=== PATIENT | female | born 1945 | race African-American/Black ===

== ENCOUNTER 2021-09-28 06:20 | Emergency (ER) | payer MEDICARE ==
[~2021-09-28] VITALS: Ht 165.1 cm; Wt 51.8 kg
[~2021-09-28 06:20] MED LIST: CARI350T26 PO; HYDR-308 PO; METO50 PO; SPIR-37 PO; TRAM50TA4 PO; VITAMIN D PO
[2021-09-28] MEDS ORDERED: IPRATROPIUM BROMIDE 0.5 MG/2.5 ML NEB SOLUTION NEB ONE (06:45)
[2021-09-28] MEDS ORDERED: ALBUTEROL SULFATE 2.5 MG/0.5 ML NEB SOLUTION NEB ONE (06:45)
[2021-09-28] MEDS ORDERED: ACETAMINOPHEN 325 MG TABLET PO ONE (06:45)
[2021-09-28 07:02] LABS: BASOPHILS % (AUTO) 0.7 % (0.0-2.0); EOSINOPHILS % (AUTO) 2.1 % (1.0-6.0); HEMATOCRIT 39.7 % (36-46); HEMOGLOBIN 13.6 g/dL (12.0-16.0); LYMPHOCYTES # (AUTO) 3.8 K/uL (1.0-4.8); LYMPHOCYTES % (AUTO) 31.3 % (22.0-44.0); MEAN CORPUSCULAR HEMOGLOBIN 32.1 pg (26.0-34.0); MEAN CORPUSCULAR HGB CONC 34.3 G/dL (31.0-37.0); MEAN CORPUSCULAR VOLUME 93 fL (80-100); MONOCYTES # (AUTO) 1.1 K/uL (0.1-1.0); MONOCYTES % (AUTO) 8.8 % (2.0-9.0); NEUTROPHILS % (AUTO) 57.1 % (40.0-70.0); PLATELET COUNT (AUTO) 382 K/uL (150-450); RED BLOOD CELL COUNT(AUTO) 4.26 MIL/uL (4.00-5.20); RED CELL DISTRIBUTION WIDTH 14.1 % (11.5-14.5)
[2021-09-28 07:13] LABS: ANION GAP 8 mmol/L (8-16); CALCIUM, TOTAL 9.4 mg/dL (8.8-10.5); CARBON DIOXIDE 26 mmol/L (22-29); CHLORIDE 100 mmol/L (98-107); CREATININE 0.98 mg/dL (0.60-1.30); GLOMERULAR FILTR. RATE CALC > 60 mL/min (>60); GLUCOSE,RANDOM 106 mg/dL (70-110); POTASSIUM 3.7 mmol/L (3.5-5.1); SODIUM SERUM 134 mmol/L (136-145); UREA NITROGEN, BLOOD 12 mg/dL (7-18)
[2021-09-28 07:59] LABS: COVID AG,FIA SOURCE NASOPHARYNGEAL
[2021-09-28 08:15] VITALS: BP 136/88
[2021-09-28] MEDS ORDERED: ALBUTEROL SULFATE HFA 90 MCG/PUFF 8 GM INHALER IH ONE (08:45)
== END 2021-09-28 09:23 | disposition home or self-care (01) ==
LOC: EMS 06:21
DX: J44.9 Chronic obstructive pulmonary disease, unspecified (principal); I10 Essential (primary) hypertension; Z88.8 Allergy status to other drugs, medicaments and biological substances; Z20.822 Contact with and (suspected) exposure to COVID-19
CPT/HCPCS: 71045; 80048; 84484; 85025; 93005; 94640; 99285; J3535; 36415-L1; 36415-TC; J7613

== ENCOUNTER → 2024-06-18 | Emergency (ER) | payer MEDICARE ==
[~2024-06-18] VITALS: Ht 165.1 cm; Wt 53.6 kg
[~2024-06-18] MED LIST changes: -CARI350T26 PO; -HYDR-308 PO
[2024-06-18 20:05] VITALS: BP 122/74; PULSE 77; RESP 18; TEMP 98.1; O2SAT 98
== END | disposition still patient (30) ==
LOC: EMS 19:43
DX: Z53.21 Procedure and treatment not carried out due to patient leaving prior to being seen by health care provider (principal)